=== PATIENT | female | born 1970 | race African-American/Black ===

== ENCOUNTER 2024-05-28 08:31 | Emergency (ER) | payer OTHER, BC ==
[2024-05-28] MEDS ORDERED: ONDANSETRON 4 MG/2 ML VIAL ONE (08:44)
[2024-05-28] MEDS ORDERED: FENTANYL CITR 100 MCG/2 ML ONE (08:45)
[2024-05-28 09:06] LABS: Absolute Eosinophils 0.1 K/uL (0-0.5); Absolute Lymphocytes (CBC) 1.6 K/uL (0.7-4.9); Absolute Monocytes 0.3 K/uL (0.1-1.3); Absolute Neutrophil 3.2 K/uL (1.8-8.0); Basophils % 0.6 % (0-1.3); Eosinophils % 1.8 % (0-4.4); Hematocrit 35.1 % (36.0-45.0); Hemoglobin 11.7 g/dL (12.0-15.0); Lymphocytes % 30.1 % (15.3-44.8); MCH 29.8 pg (27.0-35.0); MCHC 33.5 g/dL (32.0-36.0); MPV 8.4 fL (7.6-11.3); Monocytes % 5.9 % (3.3-12.3); Neutrophils % 61.6 % (41.7-73.7); Nucleated Red Blood Cells % 0.1 % (0-0); Platelets 186 thou/uL (152-406); RBC Red Blood Cell Count 3.94 M/uL (3.86-4.86); Red Cell Distribution Width 13.9 % (12.1-15.2)
[2024-05-28 09:15] LABS: Anion Gap 8.1 mEq/L (5.0-15.0); Potassium 4.1 mEq/L (3.5-5.1)
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
[2024-05-28] MEDS ORDERED: methocarbamoL 500 MG TAB ONE (11:12)
[2024-05-28] MEDS ORDERED: KETOROLAC 30 MG/ML INJ ONE (11:12)
[2024-05-28 11:58] VITALS: O2SAT 100
[2024-05-28 12:08] VITALS: BP 150/97
== END 2024-05-28 11:39 | disposition home or self-care (01) ==
LOC: ER 08:31
DX: R10.10 Upper abdominal pain, unspecified (principal); M54.50 Low back pain, unspecified; M25.552 Pain in left hip; R51.9 Headache, unspecified; V49.50XA Passenger injured in collision with unspecified motor vehicles in traffic accident, initial encounter
CPT/HCPCS: 85025; 80048; 36415; 72131; 70450; 72125; 72128; 71260; 70486; 74177; 96375; 96374; 99285; Q9967; J3010; J2405